=== PATIENT | male | born 2000 | race Two or more races ===

== ENCOUNTER 2024-08-01 13:31 | Emergency (ER) | payer OTHER ==
[~2024-08-01] VITALS: Ht 175.3 cm; Wt 95.0 kg
[2024-08-01] MEDS: FAMOTIDINE 20MG/2ML VIAL IVP ONE (15:55)
[2024-08-01] MEDS: NS 1,000 ML IV ONE (15:55)
[2024-08-01 16:01] LABS: BASO # 0.1 10^3/uL (0.0-0.2); BASO % 0.4 % (0.0-1.0); EOS # 0.1 10^3/uL (0.0-0.5); EOS % 0.9 % (0.0-3.0); HEMOGLOBIN 13.7 g/dl (13.5-17.5); LYMPH # 0.9 10^3/uL (1.5-5.0); LYMPH % 7.3 % (24.0-44.0); MEAN CORPUSCULAR HEMOGLOBIN 29.5 pg (27.0-33.0); MEAN CORPUSCULAR HGB CONC 33.4 g/dl (32.0-36.5); MEAN CORPUSCULAR VOLUME 88.2 fl (80.0-96.0); MONO # 0.3 10^3/uL (0.0-0.8); MONO % 2.3 % (2.0-8.0); NEUTROPHILS # 10.8 10^3/uL (1.5-8.5); NEUTROPHILS % 88.8 % (36.0-66.0); PLATELET COUNT, AUTOMATED 294 10^3/uL (150-450); RED BLOOD COUNT 4.65 10^6/uL (4.30-6.10); WHITE BLOOD COUNT 12.1 10^3/uL (4.0-10.0)
[2024-08-01 16:14] LABS: ERYTHROCYTE SEDIMENTATION RATE 7 mm/hr (0-15)
[2024-08-01 16:26] LABS: C REACTIVE PROTEIN QUANTITATIV < 0.40 MG/DL (<1.0)
[2024-08-01 16:27] LABS: BLOOD UREA NITROGEN 21 MG/DL (9-23); CALCIUM LEVEL 9.3 MG/DL (8.5-10.1); CARBON DIOXIDE LEVEL 26 MMOL/L (20-31); CHLORIDE LEVEL 107 MMOL/L (98-107); CREATININE FOR GFR 0.99 MG/DL (0.70-1.30); GLOMERULAR FILTRATION RATE > 60.0 (>60); GLUCOSE, FASTING 109 MG/DL (60-100); POTASSIUM SERUM 4.3 MMOL/L (3.5-5.1); SODIUM LEVEL 138 MMOL/L (136-145)
[2024-08-01 16:48] VITALS: BP 108/60; TEMP 98.1; O2SAT 98
[2024-08-01] MEDS ORDERED: PRED20TA PO (17:08)
== END 2024-08-01 17:30 | disposition home or self-care (01) ==
LOC: M ED 13:31 → EDBD 13:31 → M ED 17:30
DX: T63.481A Toxic effect of venom of other arthropod, accidental (unintentional), initial encounter (principal); F17.200 Nicotine dependence, unspecified, uncomplicated; F10.10 Alcohol abuse, uncomplicated; Z91.048 Other nonmedicinal substance allergy status; Y92.89 Other specified places as the place of occurrence of the external cause; Y93.89 Activity, other specified; Y99.1 Military activity; Z79.52 Long term (current) use of systemic steroids
CPT/HCPCS: 80048; 85025; 85652; 86140; 96361; 96374; 99284; S0028